=== PATIENT | female | born 1940 | race Caucasian/White ===

== ENCOUNTER → 2018-01-17 | Outpatient (CLI) | payer OTHER, MEDICAID | LOC: CIMAGING 08:09 | PROVIDERS: ATTEND Internal Medicine | DX: Z12.31 Encounter for screening mammogram for malignant neoplasm of breast (principal); Z80.3 Family history of malignant neoplasm of breast ==

== ENCOUNTER → 2018-02-24 | Outpatient (CLI) | payer OTHER, MEDICAID | LOC: BRMIMAGING 07:41 | PROVIDERS: ATTEND Internal Medicine | DX: N17.9 Acute kidney failure, unspecified (principal) | CPT/HCPCS: 76770-PO ==

== ENCOUNTER → 2018-06-02 | Outpatient (CLI) | payer OTHER, MEDICAID | LOC: FIMAGING 16:52 | PROVIDERS: ATTEND Specialist | DX: N20.0 Calculus of kidney (principal); I87.8 Other specified disorders of veins; Z96.0 Presence of urogenital implants ==